=== PATIENT | male | born 1990 | race Caucasian/White ===

== ENCOUNTER 2023-12-08 20:20 | Emergency (ER) | payer SELFPAY, OTHER ==
--- OUTSIDE RECORDS SUMMARY | 2023-12-08 20:23 | XMS REPORT | Clinical Summary ---
Author Name Unknown Organization [facility] Address [address] [place] [address] Care Team Providers Care Pediatric Cardiologist Name Role Phone Destin Snyder MD Unavailable [phone] Deshawn Coleman MD Primary Care Provider [phone] Allergies Active Allergy Reactions Criticality Noted Date Comments Tramadol Other (See Comments) 09/12/2016 Causes sedation, shakiness, itching Medications Medication Sig Dispensed Refills Start Date End Date Status naproxen (NAPROSYN) 500 mg tabletIndications :Neoplasm of uncertain behavior of connective and other soft tissue,Low back pain Take 1 tablet (500 mg) by mouth 2 (two) times a day with meals. 60 tablet 10/09/2017 Active levETIRAcetam (KEPPRA) 500 mg tablet Take 1 tablet (500 mg) by mouth twice daily. 10/13/2022 12/16/2023 Active pregabalin (LYRICA) 75 mg capsuleIndication s:Neoplasm of uncertain behavior of connective and other soft tissue Take 1 capsule (75 mg) by mouth twice daily. 60 capsule 12/26/2022 Active diazePAM (VALIUM) 5 mg tabletIndications :Neoplasm of uncertain behavior of connective and other soft tissue Take 1 tablet (5 mg) by mouth 2 (two) times a day as needed for muscle spasms. 30 tablet 12/26/2022 Active pregabalin (LYRICA) 75 mg capsuleIndication s:Neoplasm of uncertain behavior of connective and other soft tissue Take 1 capsule (75 mg) by mouth twice daily. 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 Encounters Date Type Department Care Team Description 01/24/2023 Refill [facility] [address] [place] [address], [address] [place] [id number] Deshawn Coleman MD Neoplasm of uncertain behavior of connective and other soft tissue 01/01/2023 11:00 AM CDT Ancillary Procedure MD Randy Zhong[address] [address] Deshawn Coleman MD Neoplasm of uncertain behavior of connective and other soft tissue 01/01/2023 Travel 12/30/2022 5:15 PM CDT Ancillary Procedure [facility] [address] [place] [id number] Ursula Rudd PA Neurofibroma 12/26/2022 9:00 AM CDT Office Visit [facility] [address] [place] [id number] Deshawn Coleman MD Neoplasm of uncertain behavior of connective and other soft tissue 12/26/2022 Travel 12/25/2022 8:45 AM CDT Ancillary Procedure MD Randy Jorge [address] [address] Ursula Rudd PA Neurofibroma 12/23/2022 9:30 AM CDT NPR MDA PATIENT ACCESS Deshawn Coleman MD 12/23/2022 Orders Only [facility] [address] [place] [address], [address] [place] [id number] Ursula Rudd PA Neurofibroma (Primary Dx) 12/15/2022 Travel after 12/08/2022 Surgical History Surgery Date Site/Laterality Comments HERNIA REPAIR OR EXCISION TUMOR SOFT TIS BACK/FLANK SUBQ 3 CM/> 10/06/2016 Left Procedure: EXCISION OF TUMOR OF SOFT TISSUE OF BACK OR FLANK; Surgeon: Deshawn Coleman MD; Location: MAIN OR; Service: ORTHOPEDIC ONCOLOGY Medical History Medical History Date Comments Seizure 11/19/2019 Family History Medical History Relation Name Comments Stroke Father Ronak -Thoracic or Lung Maternal Aunt Grace Stroke Maternal Grandfather Jabari -Skin (not Melanoma) Maternal Grandmother Connie -Thoracic or Lung Maternal Grandmother Connie -Brain cancer Paternal Aunt Grace -Brain cancer Paternal Uncle Elton -Thoracic or Lung Paternal Uncle Elton Relation Name Status Comments Father Ronak Maternal Aunt Grace Maternal Grandfather Jabari Maternal Grandmother Connie Paternal Aunt Grace Paternal Uncle Elton Social History Tobacco Use Types Packs/Day Years Used Date Smoking Tobacco: Never Smokeless Tobacco: Current Chew Last attempted to quit: 11/26/2022 Tobacco Cessation:Ready to Q uit: Yes; Counseling Given: Not Answered Alcohol Use Standard Drinks/Week Comments Yes 12 (1 standard drink = 0.6 oz pu re alcohol) Sex and Gender Information Value Date Recorded Sex Assigned at Not on file Gender Identity Not on file Sexual Orientation Not on file Job Start Date Occupation Industry Not on file Not on file Not on file Obstetrics History Last Filed Vital Signs Vital Sign Reading Time Taken Comments Blood Pressure 155/91 12/26/2022 8:56 AM CDT Pulse 80 12/26/2022 8:56 AM CDT Temperature 36.5 C (97.7 F) 12/26/2022 8:56 AM CD T Respiratory Rate 16 12/26/2022 8:56 AM CDT Oxygen Saturation 96% 12/26/2022 8:56 AM CDT Inhaled Oxygen Concentration - - Weight 77 kg (169 lb 12.1 oz) 12/30/2022 4:07 PM CDT Height 181 cm (5' 11.26") 12/26/2022 8:56 AM CDT Body Mass Index 23.5 12/26/2022 8:56 AM CDT Plan of Treatment Health Maintenance Due Date Last Done Comments COVID-19 Vaccine (2022-2 4 season) 2022 Influenza Vaccine 12/20/2023 Pneumococcal Vaccine: Pediat rics (0 to 5 Years) and At-Risk Patients (6 to 64 Years) Aged Out No longer eligi ble based on patient's age to complete this topic Procedures Procedure Name Priority Date/Time Associated Diagnosis Comments XR SPINE LUMBAR 2 OR 3 VW Routine 01/01/2023 11:05 AM CDT Neoplasm of uncertain behavior of connective and other soft tissue MRI LUMBAR SPINE W WO CONTRAST Routine 12/30/2022 5:22 PM CDT Neurofibroma XR CHEST 2 VW Routine 12/25/2022 9:04 AM CDT Neurofibroma after 12/08/2022 Results * XR Spine Lumbar 2 or 3 Views (01/01/2023 11:05 AM CDT) Anatomical Region Laterality Modality L-spine Digital Radiogra phy 01/01/2023 3:07 PM CDT Impressions 01/01/2023 8:39 PM CDT Unremarkable lumbosacral spine. ACTIONABLE ITEMS/RECOMMENDATIONS: None. I personally reviewed these image(s) along with the resident's/fellow's interpretations, certify that if a procedure was performed I was physically present, and agree with the final report. Narrative 01/01/2023 8:39 PM CDT FULL RESULT: Examination: XR Lumbosacral Spine, 2 Views, 01/01/2023 11:05 AM. Clinical History: Left paraspinal neurofibroma. Status postsurgical resection. Indication: Low back pain. Comparison: AP and lateral lumbosacral spine, 05/14/2018. Technique: AP and lateral lumbosacral spine, 01/01/2023. Findings: Generalized osteoporosis is present. The vertebral body heights and alignment are maintained. Mild osteoarthritis is seen in the apophyseal joints of the lower lumbar spine. The intervertebral disc spaces are preserved. No other bone, joint or soft tissue abnormality is seen. The hips are intact. Procedure Note Sam Triplett MD - 01/01/2023 FULL RESULT: Examination: XR Lumbosacral Spine, 2 Views, 01/01/2023 11:05 AM. Clinical History: Left paraspinal neurofibroma. Status postsurgicalresection. Indication: Low back pain. Comparison: AP and lateral lumbosacral spine, 05/14/2018. Technique: AP and lateral lumbosacral spine, 01/01/2023. Findings: Generalized osteoporosis is present. The vertebral body heights and alignment are maintained. Mild osteoarthritis is seen in the apophyseal joints of the lower lumbarspine. The intervertebral disc spaces are preserved. No other bone, joint or soft tissue abnormality is seen. The hips are intact. IMPRESSION: Unremarkable lumbosacral spine. ACTIONABLE ITEMS/RECOMMENDATIONS: None. I personally reviewed these image(s) along with the resident's/fellow'sinterpretations, certify that if a procedure was performed I wasphysically present, and agree with the final report. Deshawn Coleman MD IMG DIAGNOSTIC IMAGI NG ORDERABLES * MRI Lumbar Spine with and without Contrast (12/30/2022 5:22 PM CDT) Anatomical Region Laterality Modality L-spine, Spine Magnetic Resonan ce 12/31/2022 2:20 PM CDT Impressions 12/31/2022 2:43 PM CDT 1. Mild degenerative changes in cervical and lumbar spine. 2. No evidence of tumor recurrence. ACTIONABLE ITEMS/RECOMMENDATIONS: None. Narrative 12/31/2022 2:43 PM CDT FULL RESULT: Examination: MRI of Lumbar Spine, WO/W, 12/30/2022 5:22 PM. Clinical History: Neurofibroma. Indication: Restaging. Comparison: MRI of lumbar spine, 10/29/2018. Technique: Multiplanar multisequence MRI of lumbosacral spine, without and with IV contrast, 12/30/2022. Findings: Diffuse hyperintense T1 marrow signal throughout the bones likely represents red marrow hyperplasia. Cervical Spine and Thoracic Spine: * On the localizer sagittal T1 MR images, the cervical and thoracic vertebrae maintain their heights. * Straightening of the cervical spine is likely due to positioning. * Grade 1 retrolisthesis of C5 on C6 and C6 on C7 is noted. * Mild diskogenic degenerative changes are present at C4-C5, C5-C6 and C6-C7 without significant canal stenosis. * The cord has normal morphology. * The thoracic spine is unremarkable. Lumbosacral Spine: * The vertebral body heights and alignment are maintained. * No abnormal marrow signal is seen in the lumbosacral spine and bilateral posterior iliac bones. * Mild diskogenic degenerative changes are present at L3-L4 and L4-L5 without significant canal stenosis or foraminal narrowing. * A scar at the left posterolateral paraspinal soft tissues has healed. * No enhancing paraspinal soft tissue nodules are seen. * The distal cord has normal morphology and signal. * No enhancing leptomeningeal lesion is present. * The conus terminates at L2. * No regional lymphadenopathy is noted. Procedure Note Sam Triplett MD - 12/31/2022 FULL RESULT: Examination: MRI of Lumbar Spine, WO/W, 12/30/2022 5:22 PM. Clinical History: Neurofibroma. Indication: Restaging. Comparison: MRI of lumbar spine, 10/29/2018. Technique: Multiplanar multisequence MRI of lumbosacral spine, without andwith IV contrast, 12/30/2022. Findings: Diffuse hyperintense T1 marrow signal throughout the bones likelyrepresents red marrow hyperplasia. Cervical Spine and Thoracic Spine: * On the localizer sagittal T1 MR images, the cervical and thoracicvertebrae maintain their heights. * Straightening of the cervical spine is likely due to positioning. * Grade 1 retrolisthesis of C5 on C6 and C6 on C7 is noted. * Mild diskogenic degenerative changes are present at C4-C5, C5-C6 andC6-C7 without significant canal stenosis. * The cord has normal morphology. * The thoracic spine is unremarkable. Lumbosacral Spine: * The vertebral body heights and alignment are maintained. * No abnormal marrow signal is seen in the lumbosacral spine andbilateral posterior iliac bones. * Mild diskogenic degenerative changes are present at L3-L4 and L4-T3akbldbd significant canal stenosis or foraminal narrowing. * A scar at the left posterolateral paraspinal soft tissues has healed. * No enhancing paraspinal soft tissue nodules are seen. * The distal cord has normal morphology and signal. * No enhancing leptomeningeal lesion is present. * The conus terminates at L2. * No regional lymphadenopathy is noted. IMPRESSION: 1. Mild degenerative changes in cervical and lumbar spine. 2. No evidence of tumor recurrence. ACTIONABLE ITEMS/RECOMMENDATIONS: None. Ursula HUI MRI ORDERABL ES * X-ray Chest 2 Views (12/25/2022 9:04 AM CDT) Anatomical Region Laterality Modality Chest Digital Radiogra phy 12/25/2022 9:06 AM CDT Impressions 12/25/2022 9:07 AM CDT No acute cardiopulmonary or metastatic disease. ACTIONABLE ITEMS/RECOMMENDATIONS: None. Narrative 12/25/2022 9:07 AM CDT FULL RESULT: Examination: XR CHEST 2 VW on 12/25/2022 9:04 AM. Clinical History: Neurofibroma Indication: Restaging Disease Progression Comparison: 10/29/2018 Technique: Posteroanterior, lateral and dual-energy radiographs of the chest Findings: Support Apparatus: None. Lungs/Pleura/Mediastinum: No evident focal lung opacities. No pneumothorax. Heart size is normal. Procedure Note Jason Hudson MD - 12/25/2022 FULL RESULT: Examination: XR CHEST 2 VW on 12/25/2022 9:04 AM. Clinical History: Neurofibroma Indication: Restaging Disease Progression Comparison: 10/29/2018 Technique: Posteroanterior, lateral and dual-energy radiographs of thechest Findings: Support Apparatus: None. Lungs/Pleura/Mediastinum: No evident focal lung opacities. Nopneumothorax. Heart size is normal. IMPRESSION: No acute cardiopulmonary or metastatic disease. ACTIONABLE ITEMS/RECOMMENDATIONS: None. Ursula DUNLAP IMG DIAGNOSTIC I MAGING ORDERABLES after 12/08/2022 Advance Directives * Full Code (Latest Code Status on File) Date Activated Date Inactivated Comments 10/06/2016 2:52 PM 10/08/2016 4:15 PM Care Teams Pediatric Cardiologist Relationship Specialty Start Date End Date Destin Snyder MD [address] [phone] [email or web address] PCP - External Referring General Surgery 09/09/16 Deshawn Coleman MD [address] [place] [address] [email or web address] PCP - General Orthopaedic Sarcoma 09/12/16
--- NOTE | 2023-12-08 22:42 | RAD REPORT ---
EXAM DESCRIPTION: CT - Head C Spine Cap Wo Con - 12/08/2023 9:38 pm CLINICAL HISTORY: TRAUMA COMPARISON: No comparisons TECHNIQUE: Head and cervical spine CT images were obtained without IV contrast. Chest, abdomen, and pelvis CT images were obtained also without IV contrast. Multiplanar reformats were generated and rev iewed. All CT scans are performed using dose optimization technique as appropriate and may include automated exposure control or mA/KV adjustment according to patient size. FINDINGS: CT HEAD: No intracranial hemorrhage, mass effect, or edema. No evidence of acute territorial infarct. No midli ne shift or abnormal fluid collection. The ventricles are normal in caliber and configuration for age . Basal cisterns are patent. Mastoid aircells and paranasal sinuses are clear. No acute skull fractur e. CT CERVICAL SPINE: No acute cervical spine fracture or subluxation. Vertebral body heights are well maintained. Facet luz ints are normal in alignment. No hyperattenuating canal hematoma. Prevertebral and paraspinous soft t issues are unremarkable. CT CHEST: No pneumothorax, pulmonary contusion or pleural fluid collection. No mediastinal hematoma and the aor ta and pulmonary arteries are unremarkable. No chest will mass or abnormal axillary finding. No displ aced rib fracture or other significant bony finding. CT ABDOMEN/ PELVIS: No evidence of traumatic injury to solid abdominal viscera. Gallbladder and biliary tree are unremark able. No bowel injury or significant finding. 2 mm calculus in the lower left kidney. No free air, fr ee fluid or abnormal fat stranding. No urinary bladder abnormality. No significant bony finding. IMPRESSION: No acute traumatic findings. Incidentally noted 2 mm nonobstructing calculus in the lower left kidney.
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
[2023-12-08] MEDS ORDERED: KETOROLAC 30 MG/ML INJ ONE (23:28)
[2023-12-08] MEDS ORDERED: dexAMETHasone 10 MG/ML VIAL ONE (23:28)
[2023-12-08] MEDS ORDERED: DIAZEPAM 5 MG TABLET ONE (23:29)
[2023-12-08] MEDS ORDERED: HYDROCODONE/APAP 10/325 TAB ONE (23:29)
[2023-12-08 23:50] VITALS: BP 136/87; TEMP 98.1; O2SAT 98
== END 2023-12-08 23:42 | disposition home or self-care (01) ==
LOC: ER 20:20
DX: S29.012A Strain of muscle and tendon of back wall of thorax, initial encounter (principal); V49.9XXA Car occupant (driver) (passenger) injured in unspecified traffic accident, initial encounter
CPT/HCPCS: 70450; 71250; 72125; J1100